=== PATIENT | female | born 1940 | race Caucasian/White ===

== ENCOUNTER 2016-05-09 13:00 | Day surgery (SDC) | payer MEDICARE, BC ==
[~2016-05-09 13:00] MED LIST: APIX5TAB PO; ATOR40TA PO; CINN500C7 PO; CITA10TA4 PO; CLON.5 PO; COQ1200C3 PO; FISHCAP PO; LEVO50TA4 PO; METO25 PO; NITR.4 SL; TAB-TAB PO; TURMPOW PO; VITA-13 PO
[2016-05-09 13:51] VITALS: BP 149/83; PULSE 44; RESP 12; TEMP 97; O2SAT 100
[2016-05-09] MEDS ORDERED: SODIUM BICARBONATE 8.4% INJ 50 ML ONE (15:00)
[2016-05-09] MEDS ORDERED: LIDOCAINE HCL 1% PF 30 ML VIAL ONE (15:00)
--- NOTE | 2016-05-09 15:08 | RADRPT ---
EXAM DATE/TIME: 05/09/2016 13:30 [place] COMPARISON: No previous studies available for comparison. EXTERNAL COMPARISON: [facility], US soft tissue neck, Apr 11 2016, CT soft tissue neck, 04/12/2016, [facility] PET/CT head neck, 04/18/2016. INDICATIONS : Left neck mass seen on external PET scan. MEDICAL HISTORY : Hypothyroidism. Hypercholesterolemia. Hernia, hiatal. Measles. DVT. SURGICAL HISTORY : Hysterectomy. Hemorrhoidectomy. Cardiac cath. ENCOUNTER: Initial ACUITY: 2 weeks PAIN SCORE: 2/10 LOCATION: Left neck ORGAN: Left cervical lymph node SPECIMENS: One core specimen(s) submitted for pathologic evaluation. DEVICE: 18 gauge Temno needle Post procedure scanning reveals no hematoma or other complication. The possibility does exist that the tissue obtained will be non-diagnostic. If the sample is non-rachell gnostic a repeat biopsy or surgical biopsy may need to be performed. TECHNIQUE: 1. Ultrasound guidance for needle biopsy. 2. Needle biopsy. The risks, benefits, and alternatives to ultrasound guided needle biopsy were explained to the patien t in detail including the risk of bleeding and infection. Written and verbal informed consent was ob tained. With the patient on the ultrasound table, images were obtained. Overlying skin was prepped and drape d in the usual sterile fashion and Lidocaine was utilized as a local anesthetic. A needle was advanced into the identified target and the number of specimens as above obtained and rios bmitted for pathologic evaluation. The patient tolerated the procedure well and left the ultrasound suite in stable condition. CONCLUSION: Uncomplicated ultrasound guided needle biopsy. Sp Greenfield MD on May 09, 2016 at 15:05 Board Certified Radiologist. This report was verified electronically.
== END 2016-05-09 14:55 | disposition home or self-care (01) ==
LOC: HRAD 13:00 → HRIP 13:01 → HRAD 14:55
PROVIDERS: ATTEND Family Medicine
DX: R22.1 Localized swelling, mass and lump, neck (principal)
CPT/HCPCS: 38505; 76942; 88305

== ENCOUNTER → 2016-08-15 | Outpatient (CLI) | payer MEDICARE, BC ==
--- NOTE | 2016-08-12 11:48 | MH ---
cc: RASHIDA CHOU DATE OF ADMISSION: 08/15/2016 ADMITTING DIAGNOSIS: Cloudy posterior capsule, right eye. HISTORY OF PRESENT ILLNESS: This 75-year-old white female is coming through [facility] for the purpose of a YAG laser posterior capsulotomy of the right eye. She is status post cataract surgery with intraocular lens implants in both eyes in the past and has done well postoperatively but now has developed posterior capsule clouding in each eye with decreasing visual acuity interfering with her daily activities. She has elected have a YAG laser posterior capsulotomy of the right eye at this time. PAST MEDICAL HISTORY: 1. 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 2. She also has a history of thyroid problems. 3. Cholesterol problems. 4. History of pulmonary embolism in the past. PAST SURGICAL HISTORY:: Her past surgical history includes: 1. Hysterectomy. 2. Angioplasty. 3. Bilateral cataract surgery mentioned above. MEDICATIONS: Daily medications include: 1. Eliquis. 2. Synthroid. 3. Lipitor. 4. Celexa. 5. Multivitamin. 6. . 7. Eye vitamins. 8. Metoprolol. 9. Magnesium. 10. Resveratrol. 11. Co-Q-10. 12. Cinnamon. 13. Coconut oil. 14. Tumeric. ALLERGIES: CODEINE. SOCIAL HISTORY: Noncontributory. FAMILY HISTORY: Noncontributory. REVIEW OF SYSTEMS: Noncontributory. OCULAR EXAMINATION: On ocular exam, the patient's best corrected visual acuity was 20/40 in the right eye and 20/25 in the left. Visual wallis are full to confrontation testing. Extraocular muscle exam reveals full versions with orthophoria at distance and near. Pupils are 3 mm equal, round, and reactive to light without afferent defect. Anterior segment examination reveals posterior chamber intraocular lens implant in both eyes with a cloudy posterior capsule in both eyes as well. Intraocular pressure is 9 in the right eye and 12 in the left by applanation tonometry. Dilated fundus exam revealed sharp disk with cup-to-disk ratio 0.3 bilaterally. There is some drusen and retinal pigment epithelial changes in the macula of each eye. Reticular pigmentary changes were noted nasally in each eye. IMPRESSION: 1. Cloudy posterior capsule, both eyes. 2. Pseudophakia, both eyes. 3. Macular degeneration, wet form, in the right eye and dry form in the left. PLAN: The plan is YAG laser posterior capsulotomy of the right eye through [facility]. MD IZABEL Waldrop/SILVANO /4:02 PM /11:38 AM
[~2016-08-15] MED LIST changes: +BALANCED SALT SOLN OPHT IRRIG 15 ML BTL ONE; +FLUOROMETHOLONE 0.25% OPHT SUSP 5 ML BTL ONE; +HYPROMELLOSE 0.3 % OPTH GEL 10 GM (0.34 FL OZ) TUBE ONE; +PHENYLEPHRINE HCL 2.5% OPTH SOLN 2 ML BTL ONE; +PROPARACAINE HCL 0.5% OPHT SOLN 15 ML BTL ONE; +TROPICAMIDE 1% OPHT SOLN 15 ML BTL ONE
--- NOTE | 2016-08-15 16:31 | MP ---
cc: RASHIDA WRIGHT DATE OF SURGERY: 08/15/2016 PREOPERATIVE DIAGNOSIS Cloudy posterior capsule, right eye. POSTOPERATIVE DIAGNOSIS Cloudy posterior capsule, right eye. OPERATION YAG laser posterior capsulotomy, right eye. SURGEON Rashida Wright MD ANESTHESIA Topical. COMPLICATIONS None. INDICATIONS See history and physical previously dictated. PROCEDURE The patient arrived at [facility]. Blood pressure was 128/74, pulse 74, respirations 16. A drop of Alphagan P and Mydriacyl were instilled in the right eye. The patient was seated at the YAG laser. A drop of Alcaine was instilled in the right eye and a YAG laser posterior capsulotomy lens was placed on the anterior surface of the right cornea. YAG laser posterior capsulotomy was carried out utilizing 35 exposures of 1.3 millijoules. An adequate opening was seen following the procedure. A drop of Alphagan P was instilled topically. The patient was given a prescription for a topical steroid to be used four times per day and has an appointment for follow up on the first postoperative day in my office. The patient left the [facility] in satisfactory condition. Rashida Wright MD PLANT CONTROLLER/TLL /11:21 AM /4:21 PM .2
== END ==
LOC: PHSDC 09:54
PROVIDERS: ATTEND Ophthalmology
DX: H26.491 Other secondary cataract, right eye (principal)